=== PATIENT | female | born 1955 | race Caucasian/White ===

== ENCOUNTER → 2016-02-22 | Outpatient (CLI) | payer OTHER ==
--- NOTE | 2016-02-22 17:03 | MA ---
Screening Digital Mammogram with Digital Breast Tomosynthesis Clinical Indications: Routine screening. Technique: Standard cephalocaudal projections are obtained. Digital breast tomosynthesis was perform ed in the MLO projection with reconstruction at 1.0 mm slice thickness and composite MLO views recons tructed. This examination is processed by the CAD computer aided detection system. Comparison: December 23, 2013; May 23, 2011; January 19, 2010. Breast density: C; The breasts are heterogeneously dense, which may obscure small masses. Findings: CAD was reviewed. There are no new masses, new clusters of microcalcifications, or significant axillary lymphadenopathy . Impression: Negative mammogram. BI-RADS 1. Recommendation: Routine screening mammogram is recommended in one year. Dense mammographic pattern limits the sensitivity of mammography in this patient. If there is a clini selene palpable abnormality, recommend additional imaging with ultrasound if clinically indicated. [facility] will send a result letter to the patient. Negative mammography should not preclude additional workup of a clinically suspicious finding. The patient's information is entered into a reminder system with a target due date for her next mammo gram.
== END ==
LOC: FIMAGING 12:43
DX: Z12.31 Encounter for screening mammogram for malignant neoplasm of breast (principal)
CPT/HCPCS: G0202

== ENCOUNTER → 2016-08-16 | Outpatient (CLI) | payer OTHER | LOC: FIMAGING 14:01 | PROVIDERS: ATTEND Family Medicine Sports Medicine | DX: M25.551 Pain in right hip (principal); M25.552 Pain in left hip ==

== ENCOUNTER → 2016-08-21 | Outpatient (CLI) | payer OTHER | LOC: FIMAGING 09:38 | PROVIDERS: ATTEND Family Medicine Sports Medicine | DX: R22.0 Localized swelling, mass and lump, head (principal) ==

== ENCOUNTER → 2017-03-07 | Outpatient (CLI) | payer OTHER ==
[~2017-03-07] MED LIST: REGADENOSON 0.4 MG/5 ML SYR IVP ONE
== END ==
LOC: FIMAGING 11:36
PROVIDERS: ATTEND Family Medicine Sports Medicine
DX: J01.00 Acute maxillary sinusitis, unspecified (principal)
CPT/HCPCS: J2785

== ENCOUNTER → 2017-03-07 | Outpatient (CLI) | payer OTHER ==
--- NOTE | 2017-03-07 16:46 | PDCARST ---
CAR Stress Test Results Type of Stress Test: Nuclear TM stress test Indication: elevated calcium score Description of Procedure: After informed consent was obtained, pt was exercised according to Lavelle Protocol. Monitoring was performed with standard stress mainspring torque tester electrode placement. Vital signs were monitored according to protocol throughout the procedure. STRESS EKG AND HEMODYNAMIC DATA. Exercise time: 8 min. This is equivalent to: 9.1 METS. Resting heart rate: 66 bpm. Resting blood pressure: 140/90 mmHg. Resting O2 saturation: 96 %. Peak heart rate: 139 bpm. This is 87 % of age predicted maximum heart rate response. Peak blood pressure: 174/70 mmHg. Exercise O2: 97 %. Arrhythmias : No arrhythmias in baseline or stress; occasional PVCs in recovery. Reason for termination: The test was stopped due to leg pain. Symptoms: The patient experienced no typical symptoms of angina during stress or recovery. STRESS TEST ANALYSIS. Baseline ECG: SR. Stress ECG: sinus tachycardia with significant artifact. exercise induced ischemic ECG changes: No. Rhythm: No arrhythmias noted during exercise and occasional PVCs in recoveryrecovery. Blood pressure: Mild baselie htn with normal blood pressure response to exercise. Exercise tolerance: The patient has normal exercise tolerance adjusted for age and gender. Symptoms: No exercise induced symptoms. Impression: Stress ECG for ischemia. The Camacho Treadmill Score is +8, consistent with low cardiovascular risk (<1% annual mortality). Conclusion: Await nuclear images.
== END ==
LOC: FIMAGING 11:33
PROVIDERS: ATTEND Internal Medicine Cardiovascular Disease
DX: R94.31 Abnormal electrocardiogram [ECG] [EKG] (principal); I10 Essential (primary) hypertension; I25.10 Atherosclerotic heart disease of native coronary artery without angina pectoris; E78.5 Hyperlipidemia, unspecified
CPT/HCPCS: 78452; A9500

== ENCOUNTER → 2017-11-10 | Outpatient (CLI) | payer OTHER | LOC: FIMAGING 15:30 | PROVIDERS: ATTEND Family Medicine Sports Medicine | DX: M25.551 Pain in right hip (principal) ==

== ENCOUNTER → 2017-12-02 | Outpatient (CLI) | payer OTHER | LOC: FIMAGING 12:59 | PROVIDERS: ATTEND Family Medicine Sports Medicine | DX: Z12.31 Encounter for screening mammogram for malignant neoplasm of breast (principal); Z13.820 Encounter for screening for osteoporosis; M85.89 Other specified disorders of bone density and structure, multiple sites; Z78.0 Asymptomatic menopausal state ==

== ENCOUNTER → 2017-12-12 | Outpatient (CLI) | payer OTHER | LOC: FIMAGING 14:47 | PROVIDERS: ATTEND Family Medicine | DX: N63.10 Unspecified lump in the right breast, unspecified quadrant (principal) ==

== ENCOUNTER → 2018-02-07 | Outpatient (CLI) | payer OTHER | LOC: FIMAGING 12:44 | PROVIDERS: ATTEND Family Medicine Sports Medicine | DX: M51.36 Other intervertebral disc degeneration, lumbar region (principal); M43.16 Spondylolisthesis, lumbar region; M48.061 Spinal stenosis, lumbar region without neurogenic claudication; M99.73 Connective tissue and disc stenosis of intervertebral foramina of lumbar region; N28.9 Disorder of kidney and ureter, unspecified ==

== ENCOUNTER → 2018-04-05 | Outpatient (CLI) | payer OTHER | LOC: FIMAGING 10:29 | DX: M50.30 Other cervical disc degeneration, unspecified cervical region (principal) ==

== ENCOUNTER 2018-06-04 09:42 | Day surgery (SDC) | payer OTHER ==
[2018-06-04] MEDS ORDERED: FAMOTIDINE 20 MG TAB PO ONE (09:47)
[2018-06-04] MEDS ORDERED: ASPIRIN EC 325 MG TAB PO ONE ×2 (09:47→10:03)
[2018-06-04] MEDS ORDERED: NS 1,000 ML IV ONE (09:47)
[2018-06-04] MEDS ORDERED: diphenhydrAMINE 25 MG CAP PO ONE ×2 (09:47→10:02)
[2018-06-04] MEDS ORDERED: DIAZEPAM 5 MG TAB PO ONE (09:47)
[2018-06-04] MEDS ORDERED: FAMOTIDINE 20 MG TAB ONE (10:03)
[2018-06-04] MEDS ORDERED: DIAZEPAM 5 MG TAB ONE (10:03)
[2018-06-04 10:23] LABS: PLATELET COUNT 227 10^3/uL (150-400)
--- NOTE | 2018-06-04 10:31 | CPEKG ---
Test Reason : OPEN Blood Pressure : / mmHG Vent. Rate : 066 BPM Atrial Rate : 066 BPM P-R Int : 208 ms QRS Dur : 097 ms QT Int : 448 ms P-R-T Axes : 074 -20 061 degrees QTc Int : 470 ms Sinus rhythm Borderline left axis deviation Confirmed by Jose Rodriguez ([id number]) on 06/04/2018 10:30:45 AM Referred By: LIZA WRIGHT Confirmed By:Jose Rodriguez
[2018-06-04 10:36] LABS: INR 1.04 (0.83-1.16); PROTIME(PATIENT) 13.2 SEC (12.0-15.0)
[2018-06-04] MEDS ORDERED: IOPAMIDOL (ISOVUE-370) 150 ML BTL IV ONE (11:30)
[2018-06-04] MEDS ORDERED: fentaNYL 100 MCG/2 ML INJ ONE (11:30)
[2018-06-04] MEDS ORDERED: MIDAZOLAM 2 MG/2 ML VIAL ONE (11:30)
[2018-06-04] MEDS ORDERED: LIDOCAINE 1% 300 MG/30 ML SDV ONE (11:30)
--- NOTE | 2018-06-04 11:52 | PDHPUP ---
History & Physical Update H&P update statement: This history and physical update is based on an assessment of the patient which was completed after admission or registration (within 24 hours), but prior to the surgery/procedure. H&P update: H&P reviewed & patient examined, no change in patient's condition since H&P completed
--- NOTE | 2018-06-04 11:53 | PDPROPOC ---
Sedation Plan of Care Sedation Plan of Care: vital signs stable, mental status noted, patient educated of risks, benefits, alternatives, patient can tolerate sedation ASA Classification: ASA 2 Mallampati Score: Class 2 Mallampati Reference Image: Patient passed 3-3-2 rule?: Yes
[2018-06-04] MEDS ORDERED: ATROPINE SULFATE 1 MG/10 ML SYR IVP PRN (13:00)
[2018-06-04] MEDS ORDERED: ONDANSETRON 4 MG/2 ML VIAL IVP PRN (13:00)
[2018-06-04] MEDS ORDERED: NITROGLYCERIN 0.4 MG BTL SL PRN (13:00)
[2018-06-04] MEDS ORDERED: OXYCODONE/APAP 5/325 TAB PO PRN (13:00)
[2018-06-04] MEDS ORDERED: HYDROCODONE/APAP 5/325 TAB PO PRN (13:00)
--- NOTE | 2018-06-04 13:04 | PDDXCAT ---
Diagnostic Cath Note - . Date: 06/04/18 Box Repairer: Delaney Buyer Agent: Ed (neha) Indication: other (Markedly elevated calcium score of greater than 2000. Exertional fatigue.) - Procedure Access: right groin Procedure: left heart catheterization, coronary angiography, left ventriculogram - Materials Left Heart Cath materials: JR4.0, pigtail, other (3.5 EBU guiding catheter) - Findings-Left Heart Catheterization LM: There is moderate plaque visualized in the left main prior to injection. The left main does not have any flow-limiting stenosis and bifurcates into the LAD and diagonal. LAD: The LAD has an ostial 50% stenosis and in the mid to distal vessel is mildly aneurysmal. There is diffuse plaque seen throughout the LAD. There is 1 small diagonal branch. No flow-limiting stenosis. Of note, 3.5 EBU guiding catheter was used for additional images of the proximal LAD. LCX: The left circumflex is diffusely aneurysmal. There is no flow-limiting stenosis. There are 2 principal obtuse marginals without significant stenosis. RCA: The RCA is dominant. Diffuse mild luminal irregularities. EDP: 15 mm of mercury LVEF: 65 Wall motion: Normal - Findings-Right Heart Catheterization AO: 138/69. No aortic stenosis Complications: None Estimated blood loss: <100ml Closure method: manual pressure Assessment: Diffuse non flow-limiting coronary disease, most significant lesion was 50% ostial LAD. This does not limit blood flow. No indication for intervention. Plan: Continue aggressive risk factor modification with aspirin statin. Patient needs to quit tobacco completely. Patient Problems: Problems Problem Status Onset Basilar skull fracture Acute Intracranial hemorrhage Acute Laceration of head Acute
== END 2018-06-04 18:37 | disposition home or self-care (01) ==
LOC: FCATH 09:42
PROVIDERS: ATTEND Internal Medicine Cardiovascular Disease
PROC: B2151ZZ Fluoroscopy of Left Heart using Low Osmolar Contrast (ICD-10-PCS; principal; 2018-06-04)
PROC: 4A023N7 Measurement of Cardiac Sampling and Pressure, Left Heart, Percutaneous Approach (ICD-10-PCS; principal; 2018-06-04)
PROC: B2111ZZ Fluoroscopy of Multiple Coronary Arteries using Low Osmolar Contrast (ICD-10-PCS; principal; 2018-06-04)
DX: R94.31 Abnormal electrocardiogram [ECG] [EKG] (principal); E83.52 Hypercalcemia; R53.83 Other fatigue; I25.10 Atherosclerotic heart disease of native coronary artery without angina pectoris; I10 Essential (primary) hypertension; E78.5 Hyperlipidemia, unspecified; F10.21 Alcohol dependence, in remission; Z72.0 Tobacco use
CPT/HCPCS: 93005; 93458; C1887; J1644; J2250; J3010; Q9967

== ENCOUNTER → 2018-06-24 | Outpatient (CLI) | payer OTHER | LOC: FIMAGING 15:52 | PROVIDERS: ATTEND Family Medicine Sports Medicine | DX: F41.9 Anxiety disorder, unspecified (principal); E83.52 Hypercalcemia; Z72.0 Tobacco use; R94.31 Abnormal electrocardiogram [ECG] [EKG] ==